=== PATIENT | female | born 1990 | race Caucasian/White ===

== ENCOUNTER 2021-12-19 02:11 | Emergency (ER) | payer OTHER ==
[~2021-12-19] VITALS: Ht 121.9 cm; Wt 63.5 kg
[~2021-12-19 02:11] MED LIST: CIPRO500 MG PO; PERCOCET 5/3251 TAB PO; TAMS0.4C PO
[2021-12-19] MEDS ORDERED: DEPAKOTE ER500 MG (02:23)
[2021-12-19] MEDS ORDERED: ELAVIL (02:23)
[2021-12-19] MEDS ORDERED: LYRICA100 MG (02:23)
[2021-12-19] MEDS ORDERED: CLONAZEPAM1 MG (02:24)
[2021-12-19] MEDS ORDERED: VITAMIN B-121000 MC4 (02:24)
[2021-12-19] MEDS ORDERED: VITAMIN D310 MCG/1 M (02:24)
[2021-12-19] MEDS ORDERED: KETO10TA2 PO (06:12)
== END 2021-12-19 06:15 ==
LOC: ER 02:11
DX: S99.812A Other specified injuries of left ankle, initial encounter (principal); S89.81XA Other specified injuries of right lower leg, initial encounter; S93.492A Sprain of other ligament of left ankle, initial encounter; W19.XXXA Unspecified fall, initial encounter; Y93.89 Activity, other specified; Y92.481 Parking lot as the place of occurrence of the external cause; Y99.8 Other external cause status; Z88.8 Allergy status to other drugs, medicaments and biological substances